=== PATIENT | female | born 1970 | race African-American/Black ===

== ENCOUNTER 2018-12-20 14:56 | Emergency (ER) | payer SELFPAY ==
[~2018-12-20] VITALS: Ht 175.3 cm; Wt 78.0 kg
[2018-12-20 15:02] VITALS: Ht 175.3 cm; Wt 78.0 kg
[2018-12-20 15:47] VITALS: BP 123/68
== END 2018-12-20 15:47 | disposition home or self-care (01) ==
LOC: ED 14:56
DX: S39.012A Strain of muscle, fascia and tendon of lower back, initial encounter (principal); Z88.0 Allergy status to penicillin; X50.0XXA Overexertion from strenuous movement or load, initial encounter; Y93.89 Activity, other specified; Y92.39 Other specified sports and athletic area as the place of occurrence of the external cause; Y99.8 Other external cause status

== ENCOUNTER 2019-10-10 12:22 | Emergency (ER) | payer BC ==
[~2019-10-10] VITALS: Ht 175.3 cm; Wt 77.1 kg
[2019-10-10 12:36] VITALS: BP 141/75; Ht 175.3 cm; Wt 77.1 kg
== END 2019-10-10 14:34 | disposition left against medical advice (07) ==
LOC: ED 12:22
DX: Z53.21 Procedure and treatment not carried out due to patient leaving prior to being seen by health care provider (principal)